=== PATIENT | male | born 1980 | race Caucasian/White ===

== ENCOUNTER 2017-09-14 02:22 | Emergency (ER) | payer OTHER ==
[~2017-09-14] VITALS: Ht 175.3 cm; Wt 82.0 kg
[~2017-09-14 02:22] MED LIST: NO HOME MEDS
[2017-09-14 02:26] VITALS: BP 194/118
[2017-09-14] MEDS ORDERED: TOBREX5 ML RIGHT EYE (03:08)
[2017-09-14] MEDS ORDERED: ERYTHROMYC1 APPLICAT RIGHT EYE (03:08)
== END 2017-09-14 04:24 | disposition home or self-care (01) ==
LOC: EME 02:22
PROC: 0HQ1XZZ Repair Face Skin, External Approach (ICD-10-PCS; principal; 2017-09-14)
DX: S01.111A Laceration without foreign body of right eyelid and periocular area, initial encounter (principal); S05.01XA Injury of conjunctiva and corneal abrasion without foreign body, right eye, initial encounter; Y04.0XXA Assault by unarmed brawl or fight, initial encounter
CPT/HCPCS: 70480; 99281; 99283